=== PATIENT | male | born 1950 | race Caucasian/White ===

== ENCOUNTER 2020-03-26 10:25 | Emergency (ER) | payer MEDICARE, OTHER ==
[2020-03-26] MEDS ORDERED: ASPIRIN 81 MG CHEW (CHILDREN'S ASA) PO STA (10:38)
--- NOTE | 2020-03-26 10:42 | ED Chest Pain ---
General Chief Complaint: Chest Pain Stated Complaint: CHEST PAIN Source: patient History of Present Illness Date Seen by Provider: Mar 26, 2020 Time Seen by Provider: 10:26 Initial Comments 69-year-old male presenting with complaints of discomfort in his chest. He states this started around 11:30 PM on March 25. He was also having some discomfort in his arms. He denies any nausea or vomiting. He has no shortness of breath. He states that nothing seems to make his symptoms any worse or any better. He is not taking any medications. He denies taking any chronic prescription medications. He states that the symptoms started when he was sitting down playing the game with family. He has a family history of high blood pressure and stroke in his parents. Allergies and Home Medications Allergies Coded Allergies: No Known Drug Allergies (Unverified , 03/26/20) Patient Home Medication List Home Medication List Reviewed: Yes Review of Systems Review of Systems Constitutional: No chills, No dizziness, No fever EENTM: No Symptoms Reported Respiratory: No Symptoms Reported Cardiovascular: Chest Pain (discomfort in chest); Denies Edema, Denies Irregular Heart Rate, Denies Lightheadedness, Denies Palpitations Gastrointestinal: No Symptoms Reported; Denies Nausea Genitourinary: No Symptoms Reported Musculoskeletal: other (both arms having discomfort and "heat" sensation) Skin: No rash Psychiatric/Neurological: Denies Headache Past Clcsglk-Sfevtr-Bwwwmn Hx Past Med/Social Hx: Reviewed Nursing Past Med/Soc Hx Patient Social History Recent Foreign Travel: No Contact w/Someone Who Travel: No Past Medical History Surgeries: Yes Orthopedic (left thumb) Respiratory: No Cardiac: No Neurological: No Genitourinary: Yes Kidney Stones Gastrointestinal: No Musculoskeletal: No Endocrine: No HEENT: No Cancer: No Psychosocial: No Physical Exam Vital Signs Vital Signs - First Documented 03/26/20 10:28 Temp 37.0 Pulse 85 Resp 16 B/P (MAP) 159/87 (111) Pulse Ox 99 O2 Delivery Room Air Capillary Refill : Height, Weight, BMI Height: '" Weight: lbs. oz. kg; BMI Method: General Appearance: No Apparent Distress, WD/WN Neck: Full Range of Motion, Normal Inspection, Non Tender, Supple; No Carotid Bruit Respiratory: Chest Non Tender, Lungs Clear, Normal Breath Sounds, No Accessory Muscle Use, No Respiratory Distress Cardiovascular: Regular Rate, Rhythm, Normal Peripheral Pulses Gastrointestinal: Normal Bowel Sounds, No Pulsatile Mass, Non Tender, Soft Rectal: Deferred Extremity: Normal Capillary Refill, No Pedal Edema Neurologic/Psychiatric: Alert, Oriented x3, copy cutter II-XII Norm as Tested Skin: Normal Color, Warm/Dry Critical Care Note Critical Care Total Time (minutes) 45 minutes Progress 45 minutes of direct time was spent with patient for critical care. Time spent was excluding seperately billable procedures. Time was spent obtaining history from patient, ordering tests and reviewing results, ordering interventions and reviewing response, discussion with consultants, documentation in chart. Pt was at risk of imminent cardiac compromise. Progress/Results/Core Measures Results/Orders Lab Results Laboratory Tests Test 03/26/20 10:35 Range/Units White Blood Count 14.4 H 4.3-11.0 10^3/uL Red Blood Count 4.62 4.35-5.85 10^6/uL Hemoglobin 14.8 13.3-17.7 G/DL Hematocrit 43 40-54 % Mean Corpuscular Volume 93 80-99 FL Mean Corpuscular Hemoglobin 32 25-34 PG Mean Corpuscular Hemoglobin Concent 35 32-36 G/DL Red Cell Distribution Width 12.9 10.0-14.5 % Platelet Count 415 H 130-400 10^3/uL Mean Platelet Volume 8.5 7.4-10.4 FL Immature Granulocyte % (Auto) 0 % Neutrophils (%) (Auto) 79 H 42-75 % Lymphocytes (%) (Auto) 14 12-44 % Monocytes (%) (Auto) 6 0-12 % Eosinophils (%) (Auto) 0 0-10 % Basophils (%) (Auto) 0 0-10 % Neutrophils # (Auto) 11.3 H 1.8-7.8 X 10^3 Lymphocytes # (Auto) 2.0 1.0-4.0 X 10^3 Monocytes # (Auto) 0.9 0.0-1.0 X 10^3 Eosinophils # (Auto) 0.0 0.0-0.3 10^3/uL Basophils # (Auto) 0.1 0.0-0.1 10^3/uL Immature Granulocyte # (Auto) 0.1 0.0-0.1 10^3/uL Neutrophils % (Manual) 70 % Lymphocytes % (Manual) 14 % Monocytes % (Manual) 9 % Eosinophils % (Manual) 0 % Basophils % (Manual) 0 % Band Neutrophils 7 % Blood Morphology Comment NORMAL Prothrombin Time 13.0 12.2-14.7 SEC INR Comment 1.0 0.8-1.4 Activated Partial Thromboplast Time 29 24-35 SEC Sodium Level 134 L 135-145 MMOL/L Potassium Level 3.9 3.6-5.0 MMOL/L Chloride Level 99 98-107 MMOL/L Carbon Dioxide Level 23 21-32 MMOL/L Anion Gap 12 5-14 MMOL/L Blood Urea Nitrogen 11 7-18 MG/DL Creatinine 0.94 0.60-1.30 MG/DL Estimat Glomerular Filtration Rate > 60 BUN/Creatinine Ratio 12 Glucose Level 132 H 70-105 MG/DL Calcium Level 9.1 8.5-10.1 MG/DL Corrected Calcium 9.0 8.5-10.1 MG/DL Magnesium Level 2.0 1.6-2.4 MG/DL Total Bilirubin 0.4 0.1-1.0 MG/DL Aspartate Amino Transf (AST/SGOT) 78 H 5-34 U/L Alanine Aminotransferase (ALT/SGPT) 19 0-55 U/L Alkaline Phosphatase 64 40-136 U/L Troponin I 5.51 *H <0.30 NG/ML Pro-B-Type Natriuretic Peptide 6858.0 H <75.0 PG/ML Total Protein 7.6 6.4-8.2 GM/DL Albumin 4.1 3.2-4.5 GM/DL Lipase 23 8-78 U/L My Orders Orders - HARISH MAE MD Cbc With Automated Diff (03/26/20 10:28) Magnesium (03/26/20 10:28) Chest 1 View Ap/Pa Only (03/26/20 10:28) Ekg Tracing (03/26/20 10:) Comprehensive Metabolic Panel (03/26/20 10:) Protime With Inr (03/26/20 10:) Partial Thromboplastin Time (03/26/20 10:28) O2 (03/26/20 10:28) Monitor-Rhythm Ecg Trace Only (03/26/20 10:28) Ed Iv/Invasive Line Start (03/26/20 10:28) Lipase (03/26/20 10:) Troponin I Fs (03/26/20 10:28) Probnp Fs (03/26/20 10:28) Aspirin Chewable Tablet (Baby Aspirin Ch (03/26/20 10:38) Manual Differential (03/26/20 10:35) Nitroglycerin Ointment (Nitrobid Ointme (03/26/20 11:27) Clopidogrel Tablet (Plavix Tablet) (03/26/20 11:39) Metoprolol Succinate (Xl) Tab (Toprol Xl (03/26/20 11:39) Enoxaparin Injection (Lovenox Injection) (03/26/20 11:39) Vital Signs/I&O 03/26/20 03/26/20 10:28 12:52 Temp 37.0 Pulse 85 70 Resp 16 16 B/P (MAP) 159/87 (111) 137/82 Pulse Ox 99 98 O2 Delivery Room Air Room Air Progress Progress Note #1: Progress Note check labs, chest xray, ECG. Give 324 mg of aspirin while waiting on testing. He rates his discomfort in chest as a 0 to 1 out of 10. His ECG shows a sinus rhythm with a LAFB and flipped T waves in anterolateral leads. No prior tracings for comparison. No ST elevation. Progress Note #2: Time: 11:16 Progress Note Troponin came back elevated at 5.51. His BNP was elevated as well to 6858. CBC shows mild elevation of WBC to 14.4 with 79% neutrophils. CXR clear without any acute significant abnormalities. Updated pt about results and he states he still has slight 0-1 discomfort in chest and arms. When asked about transfer to customer experience leader he stated he was ok with going to [facility] but he also wanted to check with his and daughter. [address] Meyer with cardiology. [address] Meyer. He was in agreement with the Aspirin 324 mg given on arrival to ED and ok with starting the Ntg paste. He wanted to have the pt get Plavix 300 mg, Toprol XL 50 mg po, Lovenox 1 mg/kg SC. Admit to hospitalist and he will see the patient and see when to take him to the culture media laboratory assistant. [address] Aguilar for hospitalist service and updated him about the pt and plans as per Dr. Meyer. He requested a repeat troponin at 1500. 1138 Nursing supervisor hot strip [employer] notified and bed assigned for pt to go to cardiac stepdown. 1144 nursing staff informed me the and daughter of patient requested he go to [facility] instead. 1147 Gita RN, at [facility] will contact the hospitalist for [facility] and ca ll us back. 1159 pt reports resolution of his slight discomfort with treatment in ED Progress Note #3: Time: 12:28 Progress Note [facility] called back and HENRI Bernabe, connected me with Dr. Mariscal for the hospitalist service and he accepted the pt for Dr. Peralta. Initial ECG Impression Date: Mar 26, 2020 Initial ECG Impression Time: 10:31 Initial ECG Rate: 85 Initial ECG Rhythm: Normal Sinus Initial ECG Comparisson: No Previous ECG Available Comment sinus rhythm with a heart rate of 85 bpm. [place] interval 151 ms. Left anterior fascicular block. Flipped T waves in the anterolateral leads. No ST elevation. Prolonged QT interval with a QT of 504 ms and a QTc interval of 600 ms. There is no prior tracing available for comparison. Diagnostic Imaging Diagonstic Imaging: Xray Plain Films/CT/US/NM/MRI: chest Comments NAME: LUCIA PROCTOR MED REC#: [id number] PT STATUS: REG ER : 1950 PHYSICIAN: HARISH MAE MD ADMIT DATE: 03/26/20/ER FS Draft Date of Exam:03/26/20 CHEST 1 VIEW AP/PA ONLY EXAMINATION: Chest radiograph, portable AP view. DATE: 03/26/2020 10:44 AM INDICATION: 69-year-old male, chest pain. COMPARISON: None. FINDINGS: Heart size and mediastinal contours are unremarkable. There is no identified pneumothorax. There is no large pleural effusion. There is no identified focal airspace consolidation. IMPRESSION: No identified acute cardiopulmonary abnormality. Dictated on workstation # [id number] Dict: 03/26/20 1046 Trans: 03/26/20 1046 [facility] [phone] Interpreted by: WANG GALINDO MD Electronically signed by: Departure Impression Primary Impression: Non-ST elevation myocardial infarction (NSTEMI), subendocardial infarction, i nitial episode of care Disposition: T-TRM HOSP Condition: Stable Transfer Transfer Reason: Patient preference (Patient's and daughter want him to go to [facility]) Time Spoke to Accepting Phy: 12:28 Transfer Progress Notes D/w Dr. Mariscal and he accepted the pt for Dr. Peralta to have the pt come to [facility]. Transfer Facility: [facility] Method of Transfer: EMS Departure-Patient Inst. Referrals: NO,LOCAL PHYSICIAN (PCP/Family) Primary Care Physician HARISH MAE MD Mar 26, 2020 10:42
--- NOTE | 2020-03-26 10:47 | Diagnostic Imaging Report ---
EXAMINATION: Chest radiograph, portable AP view. DATE: 03/26/2020 10:44 AM INDICATION: 69-year-old male, chest pain. COMPARISON: None. FINDINGS: Heart size and mediastinal contours are unremarkable. There is no identified pneumothorax. There is no large pleural effusion. There is no identified focal airspace consolidation. IMPRESSION: No identified acute cardiopulmonary abnormality. Dictated by: Dictated on workstation # [id number]
[2020-03-26 10:52] LABS: HEMATOCRIT 43 % (40-54); HEMOGLOBIN 14.8 G/DL (13.3-17.7); MEAN CORPUSCULAR HEMOGLOBIN 32 PG (25-34); MEAN CORPUSCULAR HGB CONC 35 G/DL (32-36); MEAN CORPUSCULAR VOLUME 93 FL (80-99); WHITE BLOOD COUNT 14.4 10^3/uL (4.3-11.0)
[2020-03-26 10:53] LABS: BASOPHILS # (AUTO) 0.1 10^3/uL (0.0-0.1); BASOPHILS % (AUTO) 0 % (0-10); EOSINOPHILS % (AUTO) 0 % (0-10); LYMPHOCYTES % (AUTO) 14 % (12-44); MEAN PLATELET VOLUME 8.5 FL (7.4-10.4); MONOCYTES # (AUTO) 0.9 X 10^3 (0.0-1.0); MONOCYTES % (AUTO) 6 % (0-12); NEUTROPHILS # (AUTO) 11.3 X 10^3 (1.8-7.8); NEUTROPHILS % (AUTO) 79 % (42-75); PLATELET COUNT 415 10^3/uL (130-400)
[2020-03-26 11:13] LABS: ALANINE AMINOTRANSFERASE 19 U/L (0-55); ALBUMIN 4.1 GM/DL (3.2-4.5); ALKALINE PHOSPHATASE 64 U/L (40-136); BILIRUBIN,TOTAL 0.4 MG/DL (0.1-1.0); BUN/CREATININE RATIO 12; CALCIUM 9.1 MG/DL (8.5-10.1); CARBON DIOXIDE 23 MMOL/L (21-32); CHLORIDE 99 MMOL/L (98-107); CREATININE SERUM 0.94 MG/DL (0.60-1.30); GFR ESTIMATED > 60; GLUCOSE 132 MG/DL (70-105); LIPASE 23 U/L (8-78); POTASSIUM 3.9 MMOL/L (3.6-5.0); SODIUM 134 MMOL/L (135-145); TOTAL PROTEIN 7.6 GM/DL (6.4-8.2)
[2020-03-26] MEDS ORDERED: NITROGLYCERIN 2% OINT 1 GM UNIT DOSE PACKET TOP STA (11:27)
[2020-03-26] MEDS ORDERED: CLOPIDOGREL 300 MG (PLAVIX) TABLET PO STA (11:39)
[2020-03-26] MEDS ORDERED: meTOproloL SUCCINATE 50 MG (TOPROL XL) TAB PO STA (11:39)
[2020-03-26] MEDS ORDERED: ENOXAPARIN 100 MG/1 ML (LOVENOX) SYR SC STA (11:39)
[2020-03-26 12:52] VITALS: BP 137/82
[2020-03-26 12:52] LABS: BAND NEUTROPHILS 7 %; BASOPHILS % (MANUAL) 0 %; EOSINOPHILS % (MANUAL) 0 %; LYMPHOCYTES % (MANUAL) 14 %; MONOCYTES % (MANUAL) 9 %; NEUTROPHILS % (MANUAL) 70 %; RBC MORPH NORMAL
== END 2020-03-26 13:22 | disposition short-term general hospital (02) ==
LOC: ER FS 10:28
DX: I21.4 Non-ST elevation (NSTEMI) myocardial infarction (principal)
CPT/HCPCS: 36415; 71045; 80053; 83690; 83735; 83880; 84484; 85007; 85027; 85610; 85730; 93005; 93041

== ENCOUNTER 2020-04-05 18:38 | Emergency (ER) | payer MEDICARE ==
[2020-04-05] MEDS ORDERED: MIDAZOLAM 5 MG/5 ML (VERSED) VIAL ONE (18:41)
[2020-04-05 18:59] LABS: HEMATOCRIT 37 % (40-54); HEMOGLOBIN 11.7 G/DL (13.3-17.7); MEAN CORPUSCULAR HEMOGLOBIN 32 PG (25-34); MEAN CORPUSCULAR HGB CONC 32 G/DL (32-36); MEAN CORPUSCULAR VOLUME 100 FL (80-99); MEAN PLATELET VOLUME 9.1 FL (7.4-10.4); PLATELET COUNT 363 10^3/uL (130-400); WHITE BLOOD COUNT 9.8 10^3/uL (4.3-11.0)
[2020-04-05] MEDS ORDERED: NS IV 1000 ML 1,000 ML ONE (18:59)
[2020-04-05] MEDS ORDERED: NOREPINEPHRINE 4 MG/250 ML 0 ML IV ONE (18:59)
[2020-04-05 19:00] LABS: BASOPHILS # (AUTO) 0.1 10^3/uL (0.0-0.1); BASOPHILS % (AUTO) 1 % (0-10); EOSINOPHILS # (AUTO) 0.4 10^3/uL (0.0-0.3); EOSINOPHILS % (AUTO) 4 % (0-10); LYMPHOCYTES # (AUTO) 4.5 X 10^3 (1.0-4.0); LYMPHOCYTES % (AUTO) 46 % (12-44); MONOCYTES # (AUTO) 0.5 X 10^3 (0.0-1.0); MONOCYTES % (AUTO) 6 % (0-12); NEUTROPHILS # (AUTO) 4.1 X 10^3 (1.8-7.8); NEUTROPHILS % (AUTO) 42 % (42-75)
[2020-04-05] MEDS ORDERED: ROCURONIUM 10 MG/ML 5 ML SYRINGE IV ONE (19:00)
[2020-04-05] MEDS ORDERED: MIDAZOLAM 2 MG/2 ML (VERSED) VIAL IVP ONE (19:00)
[2020-04-05] MEDS ORDERED: MIDAZOLAM 5 MG/5 ML (VERSED) VIAL IVP ONE (19:00)
[2020-04-05] MEDS ORDERED: NOREPINEPHRINE 4 MG/250 ML 250 ML IV ONE (19:02)
[2020-04-05] MEDS ORDERED: methylPREDNISolone 125 MG (Solu-MEDROL) VIAL ONE (19:03)
--- NOTE | 2020-04-05 19:03 | Diagnostic Imaging Report ---
EXAMINATION: Chest 1 view HISTORY: Unresponsive. Intubated. COMPARISON: 03/26/2020. FINDINGS: An endotracheal tube is seen overlying the trachea approximately 5 to 6 cm above the casper. The lung volumes are normal. No focal consolidation is seen. No large pleural effusion or pneumothorax is seen. The cardiomediastinal silhouette is normal in size and contour. No acute osseous abnormality is seen. Sternotomy wires are noted. IMPRESSION: 1. Endotracheal tube in the appropriate configuration. 2. No focal consolidations. No large pleural effusion or pneumothorax. Dictated by: Dictated on workstation # [id number]
[2020-04-05] MEDS ORDERED: NOREPINEPHRINE 4 MG/250 ML 250 ML IV SCH (19:15)
[2020-04-05] MEDS ORDERED: NS IV 1000 ML 1,000 ML IV SCH (19:15)
[2020-04-05] MEDS ORDERED: FAMOTIDINE 20MG/2ML IV (PEPCID) IVP ONE (19:15)
[2020-04-05] MEDS ORDERED: methylPREDNISolone 125 MG (Solu-MEDROL) VIAL IVP ONE ×2 (19:15)
[2020-04-05 19:18] LABS: ALANINE AMINOTRANSFERASE 33 U/L (0-55); ALBUMIN 3.5 GM/DL (3.2-4.5); ALKALINE PHOSPHATASE 102 U/L (40-136); BILIRUBIN,TOTAL 0.3 MG/DL (0.1-1.0); BUN/CREATININE RATIO 16; CALCIUM 8.8 MG/DL (8.5-10.1); CARBON DIOXIDE 23 MMOL/L (21-32); CHLORIDE 101 MMOL/L (98-107); CREATININE SERUM 1.35 MG/DL (0.60-1.30); GFR ESTIMATED 53; GLUCOSE 163 MG/DL (70-105); POTASSIUM 4.2 MMOL/L (3.6-5.0); SODIUM 138 MMOL/L (135-145); TOTAL PROTEIN 6.7 GM/DL (6.4-8.2)
[2020-04-05 19:19] VITALS: BP 92/59
[2020-04-05 19:34] LABS: ABG BASE EXCESS -1.9 MMOL/L (-2.5-2.5); ABG OXYGEN SATURATION 100 % (94-100); ABG PCO2 35 MMHG (35-45); ABG PH 7.41 (7.37-7.43); ABG PO2 347 MMHG (79-93); ABG TCO2 23.3 MMOL/L (21.0-31.0); INSPIRED O2 15L; PATIENT TEMP 35; VENTILATOR NO
--- NOTE | 2020-04-05 20:40 | ED General ---
General Chief Complaint: Unresponsive Stated Complaint: COMPLICATIONS AFTER SURGERY Nursing Triage Note: Pt brought in by ems after being found unresponsive. Pt home today after an open heart surgery at [facility] Nursing Sepsis Screen: No Definite Risk History of Present Illness Date Seen by Provider: Apr 05, 2020 Time Seen by Provider: 18:45 Initial Comments 69-year-old male presents to the ER via EMS (with [facility] en route as they were called from the scene). History of present illness- patient had a heart attack 31 of March and was taken [facility] where he ended up having open heart s urgery and was just discharged home today. Prior to calling EMS today patient had been feeling fine, but suddenly was telling his that he thought he was having an allergic reaction and was having some itching as well as some difficulty breathing and felt like he had to go to the bathroom. His followed him into the bathroom and he collapsed falling on his face. She immediately called 911. On arrival EMS found him unconscious, face down on the floor and initial assessment was for airway compromise, presumed to be due to an allergic reaction. Attempts were made at endotracheal intubation 2 failed to 2 swelling of the airway and a large tongue and eventually supraglottic device was put in place and patient was able to be ventilated. His heart rate was in the 30s, he was given atropine as well as epinephrine and had improvement upon arrival to the ER. On arrival patient heart rate in the 120s and blood pressure 140s over 90. He was sedated with good saturations with assisted manual ventilation. Allergies and Home Medications Allergies Coded Allergies: No Known Drug Allergies (Unverified , 03/26/20) Patient Home Medication List Home Medication List Reviewed: Yes Review of Systems Review of Systems Constitutional: no symptoms reported (unable to obtain due to patient Medical condition/ AMS) Past Gmucygp-Jqaiww-Oazmru Hx Past Med/Social Hx: Reviewed Nursing Past Med/Soc Hx Patient Social History Alcohol Use: Denies Use Recreational Drug Use: No 2nd Hand Smoke Exposure: No Recent Foreign Travel: No Contact w/Someone Who Travel: No Recent Infectious Disease Expo: No Recent Hopitalizations: No Physical Abuse: No Sexual Abuse: No Past Medical History Surgeries: Yes Cardiac, Orthopedic Respiratory: No Cardiac: No Neurological: No Genitourinary: Yes Kidney Stones Gastrointestinal: No Musculoskeletal: No Endocrine: No HEENT: No Cancer: No Psychosocial: No Integumentary: No Blood Disorders: No Physical Exam Vital Signs Vital Signs - First Documented 04/05/20 18:40 Temp 35.0 Pulse 124 Resp 18 B/P (MAP) 142/83 (102) Pulse Ox 99 O2 Delivery Ambu Bag Capillary Refill : Less Than 3 Seconds Height, Weight, BMI Height: '" Weight: lbs. oz. kg; BMI Method: General Appearance: WD/WN, Moderate Distress (supraglottic airway w adequate v entilations. patient unresponsive) Eyes: Left Eye PERRL HEENT: Other (visualization of airway not performed as upper airway device adequately secured. Gross edema and firmness to upper neck soft tissue palpated) Respiratory: Lungs Clear, Normal Breath Sounds Cardiovascular: Regular Rate, Rhythm, No JVD Gastrointestinal: Non Tender, Soft Extremity: Normal Capillary Refill, Normal Inspection, No Pedal Edema Neurologic/Psychiatric: Other (unresponsive) Skin: Normal Color, Warm/Dry; No Rash Progress/Results/Core Measures Suspected Sepsis Recent Fever Within 48 Hours: No Infection Criteria Present: None New/Unexplained Altered Menta: No Sepsis Screen: No Definite Risk SIRS Temperature: Pulse: 75 Respiratory Rate: 18 Laboratory Tests 04/05/20 18:45: White Blood Count 9.8 Blood Pressure 92 /59 Mean: 102 Laboratory Tests 04/05/20 18:45: Creatinine 1.35H, Platelet Count 363, Total Bilirubin 0.3 Results/Orders Lab Results Laboratory Tests Test 04/05/20 18:45 04/05/20 19:05 Range/Units White Blood Count 9.8 4.3-11.0 10^3/uL Red Blood Count 3.70 L 4.35-5.85 10^6/uL Hemoglobin 11.7 L 13.3-17.7 G/DL Hematocrit 37 L 40-54 % Mean Corpuscular Volume 100 H 80-99 FL Mean Corpuscular Hemoglobin 32 25-34 PG Mean Corpuscular Hemoglobin Concent 32 32-36 G/DL Red Cell Distribution Width 13.6 10.0-14.5 % Platelet Count 363 130-400 10^3/uL Mean Platelet Volume 9.1 7.4-10.4 FL Immature Granulocyte % (Auto) 2 % Neutrophils (%) (Auto) 42 42-75 % Lymphocytes (%) (Auto) 46 H 12-44 % Monocytes (%) (Auto) 6 0-12 % Eosinophils (%) (Auto) 4 0-10 % Basophils (%) (Auto) 1 0-10 % Neutrophils # (Auto) 4.1 1.8-7.8 X 10^3 Lymphocytes # (Auto) 4.5 H 1.0-4.0 X 10^3 Monocytes # (Auto) 0.5 0.0-1.0 X 10^3 Eosinophils # (Auto) 0.4 H 0.0-0.3 10^3/uL Basophils # (Auto) 0.1 0.0-0.1 10^3/uL Immature Granulocyte # (Auto) 0.2 H 0.0-0.1 10^3/uL Sodium Level 138 135-145 MMOL/L Potassium Level 4.2 3.6-5.0 MMOL/L Chloride Level 101 98-107 MMOL/L Carbon Dioxide Level 23 21-32 MMOL/L Anion Gap 14 5-14 MMOL/L Blood Urea Nitrogen 22 H 7-18 MG/DL Creatinine 1.35 H 0.60-1.30 MG/DL Estimat Glomerular Filtration Rate 53 BUN/Creatinine Ratio 16 Glucose Level 163 H 70-105 MG/DL Calcium Level 8.8 8.5-10.1 MG/DL Corrected Calcium 9.2 8.5-10.1 MG/DL Total Bilirubin 0.3 0.1-1.0 MG/DL Aspartate Amino Transf (AST/SGOT) 34 5-34 U/L Alanine Aminotransferase (ALT/SGPT) 33 0-55 U/L Alkaline Phosphatase 102 40-136 U/L Troponin I < 0.30 <0.30 NG/ML Total Protein 6.7 6.4-8.2 GM/DL Albumin 3.5 3.2-4.5 GM/DL Blood Gas Puncture Site LT RAD Blood Gas Patient Temperature 35 Arterial Blood pH 7.41 7.37-7.43 Arterial Blood Partial Pressure CO2 35 35-45 MMHG Arterial Blood Partial Pressure O2 347 H 79-93 MMHG Arterial Blood HCO3 22 L 23-27 MMOL/L Arterial Blood Total CO2 23.3 21.0-31.0 MMOL/L Arterial Blood Oxygen Saturation 100 94-100 % Arterial Blood Base Excess -1.9 -2.5-2.5 MMOL/L Oh Test NA Blood Gas Ventilator Setting NO Blood Gas Inspired Oxygen 15L My Orders Orders - KASI HOLLIDAY DO Cbc With Automated Diff (04/05/20 18:46) Comprehensive Metabolic Panel (04/05/20 18:46) Lactic Acid Analyzer (04/05/20 18:46) Troponin I Fs (04/05/20 18:46) Ed Iv/Invasive Line Start (04/05/20 18:46) Rocuronium 5 Ml Syringe (Rocuronium 5 Ml (04/05/20 19:00) Norepinephrine 4 Mg/250 Ml (Norepinephri (04/05/20 18:59) Ns Iv 1000 Ml (Sodium Chloride 0.9%) (04/05/20 18:59) Norepinephrine 4 Mg/250 Ml (Norepinephri (04/05/20 19:15) Methylprednisolone Sod Succ (Solu-Medrol (04/05/20 19:15) Famotidine Injection (Pepcid Injection) (04/05/20 19:15) Norepinephrine 4 Mg/250 Ml (Norepinephri (04/05/20 19:02) Methylprednisolone Sod Succ (Solu-Medrol (04/05/20 19:03) Methylprednisolone Sod Succ (Solu-Medrol (04/05/20 19:15) Ns Iv 1000 Ml (Sodium Chloride 0.9%) (04/05/20 19:15) Arterial Blood Gas (04/05/20 19:31) Medications Given in ED Current Medications Medications Dose Ordered Sig/Bhargavi Route Start Time Stop Time Status Last Admin Dose Admin Famotidine 20 mg ONCE ONCE IVP 04/05/20 19:15 04/05/20 19:16 DC 04/05/20 19:15 20 MG Methylprednisolone Sodium Succinate 125 mg ONCE ONCE IVP 04/05/20 19:15 04/05/20 19:16 DC 04/05/20 19:16 125 MG Midazolam HCl 4 mg ONCE ONCE IVP 04/05/20 19:00 04/05/20 19:01 DC 04/05/20 18:47 4 MG Rocuronium [place] 5 mg ONCE ONCE IV 04/05/20 19:00 04/05/20 19:01 DC 04/05/20 18:50 5 MG Vital Signs/I&O 04/05/20 04/05/20 18:40 19:19 Temp 35.0 Pulse 124 75 Resp 18 18 B/P (MAP) 142/83 (102) 92/59 Pulse Ox 99 92 O2 Delivery Ambu Bag Ambu Bag Capillary Refill : Less Than 3 Seconds Blood Pressure Mean: 102 ECG Initial ECG Impression Time: 18:55 Initial ECG Rate: 87 Initial ECG Rhythm: Normal Sinus Initial ECG Intervals non-STEMI, no acute ischemic changes w L axis deviation Critical Care Note Critical Care Start Time: 18:45 Stop Time: 19:30 Progress Patient w suspected anaphylactic reaction with upper airway edema, EMS did stel lar job of getting an upper airway device in place that worked adequately to ventilate the patient. Patient w improvement in overall Cardio-Resp status in time from initial EMS eval to departure. given Versed, Vecuronium, Solumedrol, pepcid and Levophed drip prior to departure. Decision made not to remove a perfectly functioning supra-glottic device as patient was stable and the risk of losing the airway seemed very high were we to remove it and attempt JIN. Flight nurse agreed that he (also) was not interested to remove the device in this setting as the risk significantly outweighed the small potential benefit of having an ETT and potentially losing the airway. This information was passed along to the nursing staff development coordinator to notify the receiving doctor. Departure Impression Primary Impression: Anaphylaxis Qualified Codes: T78.2XXA - Anaphylactic shock, unspecified, initial encounter Additional Impressions: Syncopal episodes Qualified Codes: R55 - Syncope and collapse Unresponsive Status post aorto-coronary artery bypass graft Disposition: 02 XFER SHT-TRM HOSP Condition: Critical Transfer Transfer Reason: Exceeds level of care Time Spoke to Accepting Phy: 18:50 Transfer Progress Notes Called [facility] transfer line @ [phone] Duran @ [phone], who accepts for transfer (ER to ER) Method of Transfer: Air Departure-Patient Inst. Referrals: NO,LOCAL PHYSICIAN (PCP) Primary Care Physician KASI HOLLIDAY DO Apr 05, 2020 20:40
== END 2020-04-05 19:20 | disposition short-term general hospital (02) ==
LOC: EDUNIT# 18:38 → ER FS 18:39
DX: T78.2XXA Anaphylactic shock, unspecified, initial encounter (principal); R55 Syncope and collapse; Z95.1 Presence of aortocoronary bypass graft
CPT/HCPCS: 36415; 71045; 80053; 82805; 84484; 85025; 93005